=== PATIENT | male | born 1960 | race Caucasian/White ===

== ENCOUNTER 2018-10-30 12:53 | Inpatient (IN) ==
[2018-10-30] MEDS ORDERED: Hyoscyamine Liq Drops 0.125 MG/ML 15 ML Bottle SL ONE (15:19)
--- NOTE | 2018-10-30 15:31 | ED ---
HPI General Chief complaint: Nausea/Vomiting/Diarrhea Stated complaint: flu symptoms/n/v/d Time Seen by Provider: 10/30/18 15:03 Source: patient Mode of arrival: ambulatory Limitations: no limitations History of Present Illness HPI Narrative: Patient presents with complaints of nausea vomiting and diarrhea with general malaise since yesterday. Denies any blood per emesis or stool. Reports decreased fluid and food intake. [place] exposure to [place] people. Patient did take antibiotics as prescribed after biopsy. denies any camping. Denies any new foods. MD complaint: Reports nausea, vomiting and diarrhea Onset (ago): day(s) (Yesterday) Description of Vomiting: bilious Description of Diarrhea: watery Associated Abdominal Pain: No Location of pain: Reports diffuse Severity: mild Severity scale (1-10): 2 Quality: Reports dull Pain Consistency: constant Relieving factors: none Exacerbating factors: eating Context: Reports sick contacts, recent antibiotic use and recent surgery/ procedure Associated symptoms: Reports malaise Related Data Home Medications Medication Instructions Recorded Confirmed silodosin [Rapaflo] 4 mg PO DAILY 10/30/18 10/30/18 Allergies Allergy/AdvReac Type Severity Reaction Status Date / Time No Known Allergies Allergy Verified 10/30/18 12:58 Review of Systems ROS: all other systems reviewed are negative [facility] Medical History Medical History Enlarged prostate (Acute) Surgical History Surgical History History of cholecystectomy (Acute) History of hernia repair (Acute) History of prostate biopsy (Acute) Social History Social History Substance History: No History of Abuse Smoking Status: Never smoker How Often Do You Have a Drink Containing Alcohol: Never Recent Travel in [facility] within the Last 8 Weeks: Yes Recent Out of Country Travel within the Last 8 Weeks: No Immunization History Tetanus Immunization: Unsure Exam Narrative Exam Narrative: CARDIOVASCULAR: Regular rate and rhythm without murmurs, gallops , or rubs. RESPIRATORY: Breath sounds equal bilaterally. No accessory muscle use. GASTROINTESTINAL: Abdomen soft, normal bowel sounds, non-tender, nondistended. MUSCULOSKELETAL: No cyanosis, or edema. BACK: Nontender without obvious deformity. No CVA tenderness. Course Initial Documented Vital Signs Temperature 98.8 F 10/30/18 12:58 Pulse Rate 87 10/30/18 12:58 Respiratory Rate 18 10/30/18 12:58 Blood Pressure 93/60 L 10/30/18 12:58 Pulse Oximetry 98 10/30/18 12:58 Last Documented Vital Signs Temperature 98.8 F 10/30/18 12:58 Pulse Rate 91 H 10/30/18 18:09 Respiratory Rate 20 10/30/18 18:09 Blood Pressure 122/74 10/30/18 18:09 Pulse Oximetry 99 10/30/18 18:09 Medical Decision Making MDM Narrative Medical decision making narrative: Leukocytosis noted, acute renal failure noted , UTI noted, patient given IV antibiotics and hydration. Spoke with Dr. Bhatti who is in agreement will admit. Urosepsis versus septic prostatitis Medical Screen Exam Complete: Yes Emergency Medical Condition: Yes Differential Diagnosis Differential Diagnosis: Viral gastroenteritis, sepsis, abcess Medical Records Medical records reviewed: Yes I reviewed the patient's medical records. Lab Data Lab results reviewed: Yes I reviewed the patient's lab results. Result diagrams: 10/30/18 15:59 10/30/18 16:55 Lab Results 10/30/18 10/30/18 10/30/18 Range/Units 15:59 16:55 17:00 CBC w Diff Slide review pending WBC 32.6 H (4.0-11.0) th/mm3 RBC 5.15 (4.50-5.90) mil/mm3 Hgb 14.7 (13.0-17.0) gm/dL Hct 43.5 (39.0-51.0) % MCV 84.5 (80.0-100.0) fL MCH 28.6 (27.0-34.0) pg MCHC 33.9 (32.0-36.0) % RDW 12.6 (11.6-17.2) % Plt Count 130 L (150-450) th/mm3 MPV 8.1 (7.0-11.0) fL Neut % (Auto) 94.4 H (16.0-70.0) % Lymph % (Auto) 2.0 L (9.0-44.0) % [place] % (Auto) 2.1 (0.0-8.0) % Eos % (Auto) 0.1 (0.0-4.0) % Baso % (Auto) 1.4 (0.0-2.0) % Neut # (Auto) 30.7 H (1.8-7.7) th/mm3 Lymph # (Auto) 0.7 L (1.0-4.8) th/mm3 [place] # (Auto) 0.7 (0.0-0.9) th/mm3 Eos # (Auto) 0.0 (0.0-0.4) th/mm3 Baso # (Auto) 0.5 H (0.0-0.2) th/mm3 WBC Differential Manual diff final Seg Neuts % (Manual) 50 (16-70) % Band Neuts % (Manual) 31 H (0-6) % Lymphocytes % (Manual) 2 L (9-44) % Monocytes % (Manual) 3 (0-8) % Metamyelocytes % (Man) 12 H (0-1) % Myelocytes % (Man) 2 H (0-0) % Promyelocytes % (Man) Not Reportable Abs Neuts (Manual) 31.0 H (1.8-7.7) th/mm3 Differential Comment . Toxic Granulation 1+ H (None) Platelet Estimate Low L (Normal) Platelet Morphology Normal (Normal) Sodium 136 (136-145) meq/L Potassium 4.1 (3.5-5.1) meq/L Chloride 103 (98-107) meq/L Carbon Dioxide 22.2 (21.0-32.0) meq/L Anion Gap 11 (5-15) meq/L BUN 44 H (7-18) mg/dL Creatinine 3.00 H (0.60-1.30) mg/dL Estimated GFR 22 L (>89) mL/min Random Glucose 98 (74-106) mg/dL Lactic Acid 2.7 H (0.4-2.0) mmol/L Calcium 7.6 L (8.5-10.1) mg/dL Magnesium 1.5 (1.5-2.5) mg/dL Total Bilirubin 3.1 H (0.2-1.0) mg/dL AST 76 H (15-37) U/L ALT 93 H (12-78) U/L Alkaline Phosphatase 64 (45-117) U/L Total Protein 6.2 L (6.4-8.2) g/dL Albumin 2.9 L (3.4-5.0) g/dL Urine Color (Yellw/Straw) Urine Clarity (Clear) Urine pH (5.0-8.5) Ur Specific [place] (1.002-1.035) Urine Protein (Neg-Trace) mg/dL Urine Glucose (UA) (Negative) mg/dL Urine Ketones (Negative) mg/dL Urine Occult Blood (Negative) Urine Nitrate (Negative) Urine Bilirubin (Negative) Urine Ictotest (Negative) Urine Urobilinogen (Less than 2) mg/dL Ur Leukocyte Esterase (Negative) Urine RBC (0-3) /hpf Urine WBC (0-5) /hpf Urine WBC Clumps (None) Ur Squamous Epith Cells (0-5) /hpf Hyaline Casts (0-3) /lpf Granular Casts (None) /lpf Fine Granular Casts (None) /lpf Micro UA Comment Ur Microscopic Review Urine Culture Comments 10/30/18 Range/Units 17:13 CBC w Diff WBC (4.0-11.0) th/mm3 RBC (4.50-5.90) mil/mm3 Hgb (13.0-17.0) gm/dL Hct (39.0-51.0) % MCV (80.0-100.0) fL MCH (27.0-34.0) pg MCHC (32.0-36.0) % RDW (11.6-17.2) % Plt Count (150-450) th/mm3 MPV (7.0-11.0) fL Neut % (Auto) (16.0-70.0) % Lymph % (Auto) (9.0-44.0) % [place] % (Auto) (0.0-8.0) % Eos % (Auto) (0.0-4.0) % Baso % (Auto) (0.0-2.0) % Neut # (Auto) (1.8-7.7) th/mm3 Lymph # (Auto) (1.0-4.8) th/mm3 [place] # (Auto) (0.0-0.9) th/mm3 Eos # (Auto) (0.0-0.4) th/mm3 Baso # (Auto) (0.0-0.2) th/mm3 WBC Differential Seg Neuts % (Manual) (16-70) % Band Neuts % (Manual) (0-6) % Lymphocytes % (Manual) (9-44) % Monocytes % (Manual) (0-8) % Metamyelocytes % (Man) (0-1) % Myelocytes % (Man) (0-0) % Promyelocytes % (Man) Abs Neuts (Manual) (1.8-7.7) th/mm3 Differential Comment Toxic Granulation (None) Platelet Estimate (Normal) Platelet Morphology (Normal) Sodium (136-145) meq/L Potassium (3.5-5.1) meq/L Chloride (98-107) meq/L Carbon Dioxide (21.0-32.0) meq/L Anion Gap (5-15) meq/L BUN (7-18) mg/dL Creatinine (0.60-1.30) mg/dL Estimated GFR (>89) mL/min Random Glucose (74-106) mg/dL Lactic Acid (0.4-2.0) mmol/L Calcium (8.5-10.1) mg/dL Magnesium (1.5-2.5) mg/dL Total Bilirubin (0.2-1.0) mg/dL AST (15-37) U/L ALT (12-78) U/L Alkaline Phosphatase (45-117) U/L Total Protein (6.4-8.2) g/dL Albumin (3.4-5.0) g/dL Urine Color [place] H (Yellw/Straw) Urine Clarity Cloudy H (Clear) Urine pH 5.5 (5.0-8.5) Ur Specific [place] Greater/equal 1.030 (1.002-1.035) Urine Protein 30 H (Neg-Trace) mg/dL Urine Glucose (UA) Negative (Negative) mg/dL Urine Ketones Trace H (Negative) mg/dL Urine Occult Blood Large H (Negative) Urine Nitrate Positive H (Negative) Urine Bilirubin Small H (Negative) Urine Ictotest Positive H (Negative) Urine Urobilinogen 0.2 (Less than 2) mg/dL Ur Leukocyte Esterase Small H (Negative) Urine RBC 4-15 H (0-3) /hpf Urine WBC 9-20 H (0-5) /hpf Urine WBC Clumps Few H (None) Ur Squamous Epith Cells 0-5 (0-5) /hpf Hyaline Casts 0-3 (0-3) /lpf Granular Casts 1-3 H (None) /lpf Fine Granular Casts 1-3 H (None) /lpf Micro UA Comment Culture indicated Ur Microscopic Review Microscopic reviewed Urine Culture Comments Culture indicated Imaging Data Radiologist's impression: Chest X-Ray 10/30/18 16:27 CONCLUSION: No acute cardiopulmonary process Abdomen/Pelvis CT 10/30/18 16:32 CONCLUSION: 1. Mild induration of the soft tissues about the prostate without fluid collection or free air. 2. Prostate enlargement does indent into the base the urinary bladder. 3. Small right parasagittal supraumbilical ventral hernia with partial protrusion of the bowel into the defect. No dilated loops of small or large bowel. ECG Data Attestation: I personally reviewed and interpreted this ECG as follows: (EKG reveals sinus rhythm rate of 90, no ST segment elevations or depressions) Discharge Plan Discharge Disposition Patient Disposition: ED Admit(ED Internal Use Only) Discharge Condition Condition: Good Discharge Order Discharge Orders: ED Use Only Admit Order (Routine); Ordered 10/30/18 Ordered By: Justice Epperson Discharge Details Diagnosis: Sepsis Physicians Team ED Provider: Justice Epperson Primary Care Provider: Betty Elmore Rxs /Orders / Referrals /Forms Prescriptions: No Action silodosin [Rapaflo] 4 mg Capsule 4 mg PO DAILY RF: 0 Discharge Interventions Interventions: Vital Signs Last Done: 10/30/18 18:34 Status ED Status: With Doctor
[2018-10-30 16:09] LABS: Baso # (Auto) 0.5 th/mm3 (0.0-0.2); Baso % (Auto) 1.4 % (0.0-2.0); Eos % (Auto) 0.1 % (0.0-4.0); Hematocrit 43.5 % (39.0-51.0); Hemoglobin 14.7 gm/dL (13.0-17.0); Lymph # (Auto) 0.7 th/mm3 (1.0-4.8); Mean Corpuscular HGB Conc 33.9 % (32.0-36.0); Mean Corpuscular Hemoglobin 28.6 pg (27.0-34.0); Mean Corpuscular Volume 84.5 fL (80.0-100.0); Mean Platelet Volume 8.1 fL (7.0-11.0); Mono # (Auto) 0.7 th/mm3 (0.0-0.9); Mono % (Auto) 2.1 % (0.0-8.0); Neut # (Auto) 30.7 th/mm3 (1.8-7.7); Neut % (Auto) 94.4 % (16.0-70.0); Platelet Count 130 th/mm3 (150-450); Red Blood Count 5.15 mil/mm3 (4.50-5.90); Red Cell Distribution Width 12.6 % (11.6-17.2); White Blood Count 32.6 th/mm3 (4.0-11.0)
[2018-10-30] MEDS ORDERED: Sod Chloride 0.9% Inj 1,000 ML IV.SIG SCH (16:15)
[2018-10-30 16:46] LABS: Lymphocytes 2 % (9-44); Metamyelocytes 12 % (0-1); Monocytes 3 % (0-8)
[2018-10-30 16:47] LABS: Toxic Granulation 1+
[2018-10-30 16:48] LABS: Platelet Morphology Normal (Normal)
[2018-10-30 16:49] LABS: Myelocytes 2 % (0-0)
--- NOTE | 2018-10-30 16:55 | XR ---
EXAM DATE: 10/30/2018 4:36 PM EST AGE/SEX: 58 years / Male INDICATIONS: Fever, cough, cold, and flu symptoms. CLINICAL DATA: This is the patient's initial encounter. Patient reports that signs and symptoms have been present for 2 days and indicates a pain score of 2/10. MEDICAL/SURGICAL HISTORY: None. Cholecystectomy. COMPARISON: No prior exams available for comparison. FINDINGS: A single AP view of the chest demonstrates the lungs to be symmetrically aerated without evidence of mass, infiltrate or effusion. The cardiomediastinal contours are unremarkable. Osseous structures a re intact. CONCLUSION: No acute cardiopulmonary process Electronically signed by: Abraham Recinos MD Board Certified Radiologist 10/30/2018 4:54 PM EST
[2018-10-30 17:17] LABS: Chloride 103 meq/L (98-107); Potassium 4.1 meq/L (3.5-5.1); Sodium 136 meq/L (136-145)
[2018-10-30 17:20] LABS: Albumin 2.9 g/dL (3.4-5.0); Anion Gap 11 meq/L (5-15); Blood Urea Nitrogen 44 mg/dL (7-18); Calcium 7.6 mg/dL (8.5-10.1); Carbon Dioxide 22.2 meq/L (21.0-32.0); Glucose,Random 98 mg/dL (74-106); Magnesium 1.5 mg/dL (1.5-2.5)
[2018-10-30 17:23] LABS: Alanine Aminotransferase 93 U/L (12-78); Aspartate Aminotransferase 76 U/L (15-37); Glomerular Filtration Rate 22 mL/min (>89)
[2018-10-30 17:24] LABS: Bilirubin,Urine Small (Negative); Clarity,Urine Cloudy (Clear); Glucose,Urine (UA) Negative (Negative); Leukocyte Esterase,Urine Small (Negative); Nitrite,Urine Positive (Negative); PH,Urine 5.5 (5.0-8.5); Specific Gravity,Urine Greater/Equal 1.030 (1.002-1.035); Urobilinogen,Urine 0.2 mg/dL (Less than 2)
[2018-10-30 17:25] LABS: Total Protein 6.2 g/dL (6.4-8.2)
[2018-10-30 17:26] LABS: Alkaline Phosphatase 64 U/L (45-117)
[2018-10-30 17:30] LABS: Color,Urine Orange (Yellw/Straw); Ictotest,Urine Positive (Negative)
[2018-10-30 17:32] LABS: Hyaline Casts,Urine 0-3 /lpf (0-3); Squamous Epithelial Cell,Urine 0-5 /hpf (0-5)
--- NOTE | 2018-10-30 18:16 | CT ---
EXAM DATE: 10/30/2018 6:00 PM EST AGE/SEX: 58 years / Male INDICATIONS: Abdomen pain, Nausea, Vomiting, Diarrhea, prostate biopsy 2 days ago CLINICAL DATA: This is the patient's initial encounter. Patient reports that signs and symptoms have been present for 1 day and indicates a pain score of 2/10. MEDICAL/SURGICAL HISTORY: None. Cholecystectomy. Hernia Repair RADIATION DOSE: 23.29 CTDI (mGy) COMPARISON: No prior exams available for comparison. TECHNIQUE: Multiple contiguous axial images were obtained through the abdomen. Images were obtained using multiple row detector helical technique. Using automated exposure control and adjustment of the mA and/or kV according to patient size, radiation dose was kept as low as reasonably achievable to o btain optimal diagnostic quality images. DICOM format image data is available electronically for rev iew and comparison. FINDINGS: Lower Lungs: The visualized lower lungs are clear. Liver: The liver has a homogeneous density without space-occupying lesion. There is no dilation of th e biliary tree. Cholecystectomy. Spleen: Homogeneous density without enlargement. Pancreas: Unremarkable without mass or calcification. Kidneys: Normal in size and shape. No evidence of mass or hydronephrosis. Adrenal Glands: Unremarkable. Aorta: The aorta and proximal iliac vessels are grossly unremarkable without aneurysmal dilation. Bowel/Mesentery: No dilated loops of small or large bowel. No induration of the mesentery. A few sma ll sigmoid diverticula. Abdominal Wall: There is a small discontinuity of the right parasagittal mid abdominal wall approxim ately 2 cm above the umbilicus, best seen on axial image #51. There is a loop of bowel which partiall y protrudes into the defect. Retroperitoneum: No evidence of adenopathy in the retrocrural, para-aortic, or deep pelvic regions. Bladder: Contours are smooth. Reproductive Organs: Prostate is enlarged and does indent into the urinary bladder. Within the prost ate is measured at 7 cm. There is some induration of the soft tissues surrounding the prostate, consi stent with history of recent biopsy. There is no free fluid in the dependent pelvis. Inguinal: The inguinal region is unremarkable without evidence of adenopathy. Bony Structures: Unremarkable. CONCLUSION: 1. Mild induration of the soft tissues about the prostate without fluid collection or free air. 2. Prostate enlargement does indent into the base the urinary bladder. 3. Small right parasagittal supraumbilical ventral hernia with partial protrusion of the bowel into the defect. No dilated loops of small or large bowel. Electronically signed by: Iván Toledo MD Board Certified Radiologist 10/30/2018 6:15 PM EST
[2018-10-30] MEDS ORDERED: Bisacodyl 10 MG Supp RECTAL PRN (18:56)
[2018-10-30] MEDS: Senna/Docusate Sodium 8.6/50 MG Tablet PO SCH (20:46)
[2018-10-30] MEDS: Heparin - SQ 10,000 UNITS/ML Vial SQ SCH (20:46)
[2018-10-30] MEDS: Sod Chloride 0.9% Inj 1,000 ML IV.CONT SCH (20:46)
[2018-10-31 07:49] LABS: Baso # (Auto) 0.1 th/mm3 (0.0-0.2); Baso % (Auto) 0.7 % (0.0-2.0); Eos % (Auto) 0.1 % (0.0-4.0); Hematocrit 37.9 % (39.0-51.0); Lymph # (Auto) 0.9 th/mm3 (1.0-4.8); Lymph % (Auto) 4.8 % (9.0-44.0); Mean Corpuscular HGB Conc 34.3 % (32.0-36.0); Mean Corpuscular Volume 84.8 fL (80.0-100.0); Mean Platelet Volume 8.4 fL (7.0-11.0); Mono # (Auto) 0.6 th/mm3 (0.0-0.9); Mono % (Auto) 3.3 % (0.0-8.0); Neut # (Auto) 18.1 th/mm3 (1.8-7.7); Neut % (Auto) 91.1 % (16.0-70.0); Platelet Count 88 th/mm3 (150-450); Red Blood Count 4.46 mil/mm3 (4.50-5.90); Red Cell Distribution Width 12.8 % (11.6-17.2); White Blood Count 19.7 th/mm3 (4.0-11.0)
[2018-10-31 07:57] LABS: Potassium 3.5 meq/L (3.5-5.1)
[2018-10-31 07:59] LABS: Calcium 7.7 mg/dL (8.5-10.1)
[2018-10-31 08:00] LABS: Carbon Dioxide 20.5 meq/L (21.0-32.0)
[2018-10-31] MEDS: Senna/Docusate Sodium 8.6/50 MG Tablet PO SCH ×2 (08:47→21:57)
[2018-10-31] MEDS: Heparin - SQ 10,000 UNITS/ML Vial SQ SCH ×2 (08:49→21:57)
[2018-10-31 09:28] LABS: Lymphocytes 3 % (9-44); Metamyelocytes 8 % (0-1)
[2018-10-31 09:29] LABS: Dohle Bodies Present; Platelet Morphology Normal (Normal); Toxic Granulation 1+; Toxic Vacuolation Present
--- NOTE | 2018-10-31 11:18 | ECG ---
Date Performed: 10/30/2018 Time Performed: 16:36:31 PTAGE: 58 years EKG: Sinus rhythm MODERATE INTRAVENTRICULAR CONDUCTION DELAY NONSPECIFIC ST ELEVATION BORDERLINE ECG NO PREVIOUS TRACING DOCTOR: Marialuisa Cobian Interpretating Date/Time 10/31/2018 11:16:35
[2018-10-31] MEDS: Sod Chloride 0.9% Inj 1,000 ML IV.CONT SCH ×2 (14:34→17:16)
--- NOTE | 2018-10-31 15:42 | P.HP ---
History of Present Illness Primary Care Physician: Betty Elmore MD Chief Complaint: N/v/diarrhea History of Present Illness: This is a 58-year-old male patient with a known medical history of enlarged prostate who presented to the ED with complaints of nausea, vomiting, diarrhea and generalized malaise times 1 day. Patient is being followed by a urologist [place] and is in the middle of a study with [facility] and on of this week he underwent a prostate biopsy. On he actually traveled home after the biopsy to [place] and was doing quite well. On Thursday he developed severe chills and fever with associated nausea, vomiting and diarrhea. He had felt that this was maybe the flu or something he caught while traveling. Patient states that the symptoms continued to worsen over the course of the evening which prompted his presentation to the ED on Thursday morning. Patient denies any previous UTI in the past. He does state he took three doses of Levaquin the day before, of and day after his procedure. Presented with severe sepsis with bacteremia, leukocytosis with WBC 30k, elevated lactic acid and UA and + blood cultures with gram neg rods. - Diagnosis (1) Sepsis Inpatient Certification: I certify that the inpatient services were ordered in accordance with Medicare regulations governing the order. This includes certification that hospital inpatient services are reasonable and necessary and in the case of services not specified as inpatient-only under 42 CFR 419.22(n), that they are appropriately provided as inpatient services in accordance to with the 2-midnight benchmark under 43 CFR 412.3(e) Estimated Total Length of Stay (Days): 5 Plans for Post Hospital Care: Home Review of Systems All other systems reviewed negative except as stated in [facility] - History History Provided By: Patient, Significant Other - Medical History Medical History: Medical History (Last Reviewed 10/31/18 @ 15:33 by Rachelle Liang) Enlarged prostate - Surgical History Surgical History: Surgical History (Last Reviewed 10/31/18 @ 15:33 by Rachelle Liang) History of cholecystectomy History of hernia repair History of prostate biopsy - Family History Family History: Family History (Last Updated 10/31/18 @ 16:14 by Rachelle Liang) Other Family history in first degree relatives is unremarkable - Social History I have reviewed the patient's Social History: Yes - Tobacco History Second Hand Smoke Exposure: No Smoking Status: Never smoker - Alcohol History How Often Do You Have a Drink Containing Alcohol: Never - Substance Use History Substance History: No History of Abuse - Travel History Recent Travel in the [place] Within the Last 8 Weeks: Yes Recent Travel Out of the Country Within the Last 8 Weeks: No - Immunization History Tetanus Immunization: Unsure Hx Influenza Vaccine This Season: No Medications and Allergies Active Medications: Active Medications Acetaminophen (Tylenol) 650 mg PO Q4H PRN PRN Reason: Temp > 100.4 Al Hydroxide/Mg Hydroxide (Milk Of Magnesia Liq) 30 ml PO Q12H PRN PRN Reason: Mild Constipation Bisacodyl (Dulcolax Supp) 10 mg RECTAL DAILY PRN PRN Reason: SEVERE CONSITIPATION Heparin Sodium (Porcine) (Heparin Inj) 5,000 units SQ Q12H [facility] Last Admin: 10/31/18 08:49 Dose: 5,000 units Ceftriaxone Sodium 1,000 mg/ (Sodium Chloride) 100 mls @ 200 mls/hr IV.SIG Q24H [facility] Sodium Chloride (Ns Inj) 1,000 mls @ 100 mls/hr IV.CONT .Q10H [facility] Last Admin: 10/31/18 14:34 Dose: 100 mls/hr Lactulose (Lactulose Liq) 30 ml PO DAILY PRN PRN Reason: SEVERE CONSITIPATION Ondansetron HCl (Zofran Inj) 4 mg IV.PUSH Q6H PRN PRN Reason: NAUSEA OR VOMITING Last Admin: 10/31/18 08:49 Dose: 4 mg Senna/Docusate Sodium (Hailee-Colace) 1 tab PO BID [facility] Last Admin: 10/31/18 08:47 Dose: 1 tab Sennosides (Senokot) 17.2 mg PO Q12H PRN PRN Reason: Moderate Constipation Sodium Chloride (Ns Flush) 2 ml IV.FLUSH BID [facility] Last Admin: 10/31/18 08:48 Dose: Not Given Sodium Chloride (Ns Flush) 2 ml IV.FLUSH PRN PRN PRN Reason: FLUSH AFTER USING IV ACCESS Tamsulosin HCl (Flomax) 0.4 mg PO DAILY [facility] Last Admin: 10/31/18 08:47 Dose: 0.4 mg Allergies Allergy/AdvReac Type Severity Reaction Status Date / Time No Known Allergies Allergy Verified 10/30/18 12:58 Home Medications Medication Instructions Recorded Confirmed Type silodosin [Rapaflo] 8 mg PO HS 10/30/18 10/31/18 History Exam Vital signs: Vital Signs 10/30/18 16:20 10/30/18 16:27 10/30/18 16:40 Temperature Pulse Rate 86 82 Respiratory Rate 20 Blood Pressure 93/66 L 107/68 Pulse Oximetry 99 99 10/30/18 17:09 10/30/18 18:09 10/30/18 18:34 Temperature Pulse Rate 91 H 83 Respiratory Rate 20 20 20 Blood Pressure 100/67 122/74 137/69 Pulse Oximetry 99 99 99 10/30/18 19:34 10/30/18 20:00 10/31/18 00:00 Temperature 98.7 F 98.0 F Pulse Rate 95 H 90 90 Respiratory Rate 20 16 18 Blood Pressure 112/70 113/78 112/79 Pulse Oximetry 97 99 100 10/31/18 04:00 10/31/18 08:00 10/31/18 12:00 Temperature 98.9 F 99.3 F 97.8 F Pulse Rate 96 H 99 H 97 H Respiratory Rate 16 15 16 Blood Pressure 125/68 112/63 118/71 Pulse Oximetry 99 96 96 Intake & Output 10/30/18 10/31/18 10/31/18 18:59 06:59 18:59 Intake Total 1000 / 1000 1060 / 1060 1000 / 1000 Balance 1000 / 1000 1060 / 1060 1000 / 1000 Weight 107 kg 108.9 kg Intake: IV 1000 / 1000 100 / 100 1000 / 1000 NS Inj 1,000 ML @ 100 mls/hr IV 1000 / 1000 .CONT .Q10H [facility] Rx#:[id number] NS Inj 1,000 ML @ 1000 mls/hr 1000 / 1000 IV.SIG BOLUS [facility]EL Rx#:[id number] Rocephin Inj 1,000 MG In NS Inj 100 / 100 100 ML @ 200 mls/hr IV.SIG ONCE ONE Rx#:[id number] Oral 960 / 960 Other: # Voids 10 Narrative: GENERAL: Well-developed, well-nourished patient in NAD. SKIN: Cool and clammy. No rash. HEAD: Normocephalic. Atraumatic. EYES: Pupils equal and round. No scleral icterus. No injection or drainage. ENT: No nasal bleeding or discharge. Mucous membranes pink and moist. NECK: Supple. Trachea midline. CARDIOVASCULAR: Regular rate and rhythm. S1, S2 noted. No murmur appreciated. RESPIRATORY: No accessory muscle use. Clear to auscultation. Breath sounds equal bilaterally. GASTROINTESTINAL: Abdomen soft, non-tender, nondistended. Hypoactive bowel sounds x4. No pain to palpation. MUSCULOSKELETAL: No obvious deformities. Extremities without clubbing, cyanosis , or edema. NEUROLOGICAL: Awake and alert. No obvious cranial nerve deficits. Motor grossly within normal limits. 5/5 muscle strength in bilateral upper and lower extremities. Normal speech. PSYCHIATRIC: Appropriate mood and affect; insight and judgment normal. Results - Labs CBC & Chem 7: 10/31/18 07:18 10/31/18 07:18 Labs: Laboratory Results - last 24 hr 10/30/18 10/30/18 10/30/18 15:59 16:55 17:00 CBC w Diff Slide review pending WBC 32.6 H RBC 5.15 Hgb 14.7 Hct 43.5 MCV 84.5 MCH 28.6 MCHC 33.9 RDW 12.6 Plt Count 130 L MPV 8.1 Neut % (Auto) 94.4 H Lymph % (Auto) 2.0 L [place] % (Auto) 2.1 Eos % (Auto) 0.1 Baso % (Auto) 1.4 Neut # (Auto) 30.7 H Lymph # (Auto) 0.7 L [place] # (Auto) 0.7 Eos # (Auto) 0.0 Baso # (Auto) 0.5 H WBC Differential Manual diff final Seg Neuts % (Manual) 50 Band Neuts % (Manual) 31 H Lymphocytes % (Manual) 2 L Monocytes % (Manual) 3 Metamyelocytes % (Man) 12 H Myelocytes % (Man) 2 H Promyelocytes % (Man) Not Reportable Abs Neuts (Manual) 31.0 H Differential Comment . Toxic Granulation 1+ H Toxic Vacuolation Dohle Bodies Platelet Estimate Low L Platelet Morphology Normal Sodium 136 Potassium 4.1 Chloride 103 Carbon Dioxide 22.2 Anion Gap 11 BUN 44 H Creatinine 3.00 H Estimated GFR 22 L Random Glucose 98 Lactic Acid 2.7 H Calcium 7.6 L Magnesium 1.5 Total Bilirubin 3.1 H AST 76 H ALT 93 H Alkaline Phosphatase 64 Total Protein 6.2 L Albumin 2.9 L Urine Color Urine Clarity Urine pH Ur Specific [place] Urine Protein Urine Glucose (UA) Urine Ketones Urine Occult Blood Urine Nitrate Urine Bilirubin Urine Ictotest Urine Urobilinogen Ur Leukocyte Esterase Urine RBC Urine WBC Urine WBC Clumps Ur Squamous Epith Cells Hyaline Casts Granular Casts Fine Granular Casts Micro UA Comment Ur Microscopic Review Urine Culture Comments 10/30/18 10/30/18 10/31/18 17:13 19:19 07:18 CBC w Diff Slide review pending WBC 19.7 H RBC 4.46 L Hgb 13.0 Hct 37.9 L MCV 84.8 MCH 29.0 MCHC 34.3 RDW 12.8 Plt Count 88 L D MPV 8.4 Neut % (Auto) 91.1 H Lymph % (Auto) 4.8 L [place] % (Auto) 3.3 Eos % (Auto) 0.1 Baso % (Auto) 0.7 Neut # (Auto) 18.1 H Lymph # (Auto) 0.9 L [place] # (Auto) 0.6 Eos # (Auto) 0.0 Baso # (Auto) 0.1 WBC Differential Manual diff final Seg Neuts % (Manual) 65 Band Neuts % (Manual) 24 H Lymphocytes % (Manual) 3 L Monocytes % (Manual) Metamyelocytes % (Man) 8 H Myelocytes % (Man) Promyelocytes % (Man) Abs Neuts (Manual) 19.1 H Differential Comment . Toxic Granulation 1+ H Toxic Vacuolation Present H Dohle Bodies Present H Platelet Estimate Low L Platelet Morphology Normal Sodium Potassium Chloride Carbon Dioxide Anion Gap BUN Creatinine Estimated GFR Random Glucose Lactic Acid 2.4 H Calcium Magnesium Total Bilirubin AST ALT Alkaline Phosphatase Total Protein Albumin Urine Color [place] H Urine Clarity Cloudy H Urine pH 5.5 Ur Specific [place] Greater/equal 1.030 Urine Protein 30 H Urine Glucose (UA) Negative Urine Ketones Trace H Urine Occult Blood Large H Urine Nitrate Positive H Urine Bilirubin Small H Urine Ictotest Positive H Urine Urobilinogen 0.2 Ur Leukocyte Esterase Small H Urine RBC 4-15 H Urine WBC 9-20 H Urine WBC Clumps Few H Ur Squamous Epith Cells 0-5 Hyaline Casts 0-3 Granular Casts 1-3 H Fine Granular Casts 1-3 H Micro UA Comment Culture indicated Ur Microscopic Review Microscopic reviewed Urine Culture Comments Culture indicated 10/31/18 07:18 CBC w Diff WBC RBC Hgb Hct MCV MCH MCHC RDW Plt Count MPV Neut % (Auto) Lymph % (Auto) [place] % (Auto) Eos % (Auto) Baso % (Auto) Neut # (Auto) Lymph # (Auto) [place] # (Auto) Eos # (Auto) Baso # (Auto) WBC Differential Seg Neuts % (Manual) Band Neuts % (Manual) Lymphocytes % (Manual) Monocytes % (Manual) Metamyelocytes % (Man) Myelocytes % (Man) Promyelocytes % (Man) Abs Neuts (Manual) Differential Comment Toxic Granulation Toxic Vacuolation Dohle Bodies Platelet Estimate Platelet Morphology Sodium 136 Potassium 3.5 Chloride 104 Carbon Dioxide 20.5 L Anion Gap 12 BUN 41 H Creatinine 1.80 H Estimated GFR 39 L Random Glucose 100 Lactic Acid Calcium 7.7 L Magnesium Total Bilirubin AST ALT Alkaline Phosphatase Total Protein Albumin Urine Color Urine Clarity Urine pH Ur Specific [place] Urine Protein Urine Glucose (UA) Urine Ketones Urine Occult Blood Urine Nitrate Urine Bilirubin Urine Ictotest Urine Urobilinogen Ur Leukocyte Esterase Urine RBC Urine WBC Urine WBC Clumps Ur Squamous Epith Cells Hyaline Casts Granular Casts Fine Granular Casts Micro UA Comment Ur Microscopic Review Urine Culture Comments - Imaging Impressions Chest X-Ray 10/30/18 16:27 CONCLUSION: No acute cardiopulmonary process Abdomen/Pelvis CT 10/30/18 16:32 CONCLUSION: 1. Mild induration of the soft tissues about the prostate without fluid collection or free air. 2. Prostate enlargement does indent into the base the urinary bladder. 3. Small right parasagittal supraumbilical ventral hernia with partial protrusion of the bowel into the defect. No dilated loops of small or large bowel. Caprini VTE Risk Assessment Caprini VTE Risk Assessment: No/Low Risk (score <= 1) Caprini Risk Assessment Model: Point Value = 1 Point Value = 2 Point Value = 3 Point Value = 5 Age 41-60 Minor surgery BMI > 25 kg/m2 Swollen legs Varicose veins or History of unexplained or recurrent spontaneous Oral contraceptives or hormone replacement Sepsis (< 1 month) Serious lung disease, including pneumonia (< 1 month) Abnormal pulmonary function Acute myocardial infarction Congestive heart failure (< 1 month) History of inflammatory bowel disease Medical patient at bed rest Age 61-74 Arthroscopic surgery Major open surgery (> 45 min) Laparoscopic surgery (> 45 min) Malignancy Confined to bed (> 72 hours) Immobilizing plaster cast Central venous access Age >= 75 History of VTE Family history of VTE Factor V Leiden Prothrombin [id number] Lupus anticoagulant Anticardiolipin antibodies Elevated serum homocysteine Heparin-induced thrombocytopenia Other congenital or acquired thrombophilia Stroke (< 1 month) Elective arthroplasty Hip, pelvis, or leg fracture Acute spinal cord injury (< 1 month) Prophylaxis Regimen: Total Risk Factor Score Risk Level Prophylaxis Regimen 0-1 Low Early ambulation 2 Moderate Order ONE of the following: *Sequential Compression Device (SCD) *Heparin 5000 units SQ BID 3-4 Higher Order ONE of the following medications: *Heparin 5000 units SQ TID *Enoxaparin/Lovenox 40 mg SQ daily (WT < 150 kg, CrCl > 30 mL/min) *Enoxaparin/Lovenox 30 mg SQ daily (WT < 150 kg, CrCl > 10-29 mL/min) *Enoxaparin/Lovenox 30 mg SQ BID (WT < 150 kg, CrCl > 30 mL/min) AND/OR *Sequential Compression Device (SCD) 5 or more Highest Order ONE of the following medications: *Heparin 5000 units SQ TID (Preferred with Epidurals) *Enoxaparin/Lovenox 40 mg SQ daily (WT < 150 kg, CrCl > 30 mL/min) *Enoxaparin/Lovenox 30 mg SQ daily (WT < 150 kg, CrCl > 10-29 mL/min) *Enoxaparin/Lovenox 30 mg SQ BID (WT < 150 kg, CrCl > 30 mL/min) AND *Sequential Compression Device (SCD) Assessment and Plan - Assessment (1) Sepsis Code(s): A41.9 - Sepsis, unspecified organism Status: Acute - Plan This is a 58-year-old male patient with a known medical history of enlarged prostate who presented to the ED with complaints of nausea, vomiting, diarrhea and generalized malaise x 1 day. Severe urosepsis Bacteremia Acute kidney injury suspect secondary to above. improving History of enlarged prostate Recent outpatient prostate biopsy -Patient presents with severe leukocytosis of white blood cell 30k, elevated lactic acid, tachycardia and source urinary tract. -UA showing nitrates, leukocyte esterase and white blood cells. Urine culture gram-negative rods. -Creatinine 3.0/GFR 22 upon presentation, today 1.8/39. Will continue to monitor CBC and CMP in a.m. -Blood cultures x2 bottles positive for gram-negative rods. Repeat blood cultures ordered. -Abdominal/pelvis CT reviewed showing enlarged prostate as well as mild induration of the soft tissues about the prostate. -Chest x-ray reviewed, essentially unremarkable with no acute cardiopulmonary disease noted. -Started on ceftriaxone IV for now. Will continue. ID consulted and input and recommendations pending. -CBC this morning showing white blood cells decreased from 30,000 to 19.7. Afebrile overnight. -Will continue IV fluids. Ensure hydration. Was given 1 L NS bolus in ED. -Continue Flomax. -Patient is requesting referral to urology once discharged. At this time will hold off on consultation for now. He is urinating well. Upon discharge we will refer. -Supportive care. Transaminitis Elevated bilirubin -Total bilirubin 3.1. -Unknown etiology. -Will check labs in a.m. follow. DVT prophylaxis: SCDs. Heparin. (1) Sepsis Qualifiers: Sepsis type: sepsis due to unspecified organism Qualified Code(s): A41.9 - Sepsis, unspecified organism
[2018-10-31 16:13] LABS: Albumin 2.8 g/dL (3.4-5.0)
[2018-10-31 16:18] LABS: Total Protein 6.2 g/dL (6.4-8.2)
[2018-11-01] MEDS: Sod Chloride 0.9% Inj 1,000 ML IV.CONT SCH ×3 (02:41→20:53)
[2018-11-01 07:32] LABS: Baso % (Auto) 0.3 % (0.0-2.0); Eos # (Auto) 0.1 th/mm3 (0.0-0.4); Eos % (Auto) 0.6 % (0.0-4.0); Hemoglobin 12.1 gm/dL (13.0-17.0); Lymph % (Auto) 7.1 % (9.0-44.0); Mean Corpuscular HGB Conc 33.6 % (32.0-36.0); Mean Corpuscular Hemoglobin 28.4 pg (27.0-34.0); Mean Corpuscular Volume 84.5 fL (80.0-100.0); Mean Platelet Volume 8.9 fL (7.0-11.0); Mono # (Auto) 0.5 th/mm3 (0.0-0.9); Mono % (Auto) 3.3 % (0.0-8.0); Neut # (Auto) 12.1 th/mm3 (1.8-7.7); Neut % (Auto) 88.7 % (16.0-70.0); Platelet Count 99 th/mm3 (150-450); Red Blood Count 4.26 mil/mm3 (4.50-5.90); Red Cell Distribution Width 12.6 % (11.6-17.2); White Blood Count 13.7 th/mm3 (4.0-11.0)
[2018-11-01 07:35] LABS: Chloride 108 meq/L (98-107); Potassium 3.4 meq/L (3.5-5.1); Sodium 141 meq/L (136-145)
[2018-11-01 07:41] LABS: Albumin 2.7 g/dL (3.4-5.0); Anion Gap 9 meq/L (5-15); Calcium 7.6 mg/dL (8.5-10.1); Carbon Dioxide 23.8 meq/L (21.0-32.0); Glucose,Random 97 mg/dL (74-106)
[2018-11-01 07:54] LABS: Alanine Aminotransferase 55 U/L (12-78); Alkaline Phosphatase 99 U/L (45-117); Aspartate Aminotransferase 36 U/L (15-37); Glomerular Filtration Rate 77 mL/min (>89); Platelet Morphology Normal (Normal); RBC Morphology Normal (Normal); Total Protein 6.2 g/dL (6.4-8.2)
[2018-11-01 07:56] LABS: Blood Urea Nitrogen 26 mg/dL (7-18)
--- NOTE | 2018-11-01 07:58 | P.PNIM ---
Subjective Interval history: Follow up urosepsis bacteremia. Patient seen and examined, at bedside. Sitting on side of bed comfortably in nad. Eating lunch. He states he feels much improved. Afebrile overnight. Awaiting ID recommendations. Labs improved today. Urinating well without any dysuria. Complaints of frequency and urgency. Denies any shortness of breath or chest pain. Physical Exam Vital signs: Vital Signs 10/31/18 08:00 10/31/18 12:00 10/31/18 16:00 Temperature 99.3 F 97.8 F 97.6 F Pulse Rate 111 H 97 H 92 H Respiratory Rate 15 16 16 Blood Pressure 112/63 118/71 122/76 Pulse Oximetry 96 96 96 10/31/18 18:00 10/31/18 20:00 11/01/18 00:00 Temperature 98.6 F 98.8 F Pulse Rate 92 H 97 H 97 H Respiratory Rate 18 18 Blood Pressure 118/74 109/75 Pulse Oximetry 98 98 11/01/18 04:00 Temperature 98.1 F Pulse Rate 90 Respiratory Rate 18 Blood Pressure 117/71 Pulse Oximetry 96 Intake & Output 10/31/18 11/01/18 11/01/18 18:59 06:59 18:59 Intake Total 3730 / 3730 1960 / 1960 Output Total 1500 / 1500 Balance 3730 / 3730 460 / 460 Weight 109.2 kg Intake: IV 2100 / 2100 1000 / 1000 NS Inj 1,000 ML @ 100 mls/hr IV 2000 / 2000 1000 / 1000 .CONT .Q10H [facility] Rx#:[id number] Rocephin Inj 1,000 MG In NS Inj 100 / 100 100 ML @ 200 mls/hr IV.SIG Q24H [facility] Rx#:[id number] Oral 1630 / 1630 Oral Supplement 960 / 960 Output: Urine 1500 / 1500 Other: # Voids 5 # Bowel Movements 0 - Constitutional no acute distress - Routine HEENT Exam Head: Present: normocephalic - Routine Neck Exam Present: supple - Routine Cardiovascular Exam Present: RRR - Routine Abdominal Exam Present: soft - Routine Exam Perineum Description: Intact - Routine Skin Exam Present: intact - Routine Neurological Exam Present: alert, oriented X3 - Routine Psychiatric Exam Present: normal affect Results - Labs CBC & Chem 7: 11/01/18 06:02 11/01/18 06:02 Laboratory Results - last 24 hr 10/30/18 10/31/18 10/31/18 17:13 07:18 07:18 CBC w Diff WBC RBC Hgb Hct MCV MCH MCHC RDW Plt Count MPV Neut % (Auto) Lymph % (Auto) [place] % (Auto) Eos % (Auto) Baso % (Auto) Neut # (Auto) Lymph # (Auto) [place] # (Auto) Eos # (Auto) Baso # (Auto) WBC Differential Manual diff final Diff Scan Seg Neuts % (Manual) 65 Band Neuts % (Manual) 24 H Lymphocytes % (Manual) 3 L Metamyelocytes % (Man) 8 H Abs Neuts (Manual) 19.1 H Differential Comment Toxic Granulation 1+ H Toxic Vacuolation Present H Dohle Bodies Present H Platelet Estimate Low L Platelet Morphology Normal RBC Morphology Sodium Potassium Chloride Carbon Dioxide 20.5 L Anion Gap 12 BUN 41 H Creatinine 1.80 H Estimated GFR 39 L Random Glucose 100 Calcium 7.7 L Total Bilirubin Direct Bilirubin Indirect Bilirubin AST ALT Alkaline Phosphatase Total Protein Albumin Urine Color [place] H Urine Clarity Cloudy H Urine pH 5.5 Ur Specific [place] Greater/equal 1.030 Urine Protein 30 H Urine Glucose (UA) Negative Urine Ketones Trace H Urine Occult Blood Large H Urine Nitrate Positive H Urine Bilirubin Small H Urine Ictotest Positive H Urine Urobilinogen 0.2 Ur Leukocyte Esterase Small H Urine RBC 4-15 H Urine WBC 9-20 H Urine WBC Clumps Few H Ur Squamous Epith Cells 0-5 Hyaline Casts 0-3 Granular Casts 1-3 H Fine Granular Casts 1-3 H Micro UA Comment Culture indicated Ur Microscopic Review Microscopic reviewed Urine Culture Comments Culture indicated 10/31/18 11/01/18 11/01/18 07:18 06:02 06:02 CBC w Diff Slide review pending WBC 13.7 H RBC 4.26 L Hgb 12.1 L Hct 36.0 L MCV 84.5 MCH 28.4 MCHC 33.6 RDW 12.6 Plt Count 99 L MPV 8.9 Neut % (Auto) 88.7 H Lymph % (Auto) 7.1 L [place] % (Auto) 3.3 Eos % (Auto) 0.6 Baso % (Auto) 0.3 Neut # (Auto) 12.1 H Lymph # (Auto) 1.0 [place] # (Auto) 0.5 Eos # (Auto) 0.1 Baso # (Auto) 0.0 WBC Differential . Diff Scan Auto diff confirmed Seg Neuts % (Manual) Band Neuts % (Manual) Lymphocytes % (Manual) Metamyelocytes % (Man) Abs Neuts (Manual) Differential Comment . Toxic Granulation Toxic Vacuolation Dohle Bodies Platelet Estimate Platelet Morphology Normal RBC Morphology Normal Sodium 141 Potassium 3.4 L Chloride 108 H Carbon Dioxide 23.8 Anion Gap 9 BUN 26 H Creatinine 1.00 Estimated GFR 77 L Random Glucose 97 Calcium 7.6 L Total Bilirubin 1.9 H 1.2 H Direct Bilirubin 0.9 H Indirect Bilirubin 1.0 H AST 58 H 36 ALT 75 55 Alkaline Phosphatase 73 99 Total Protein 6.2 L 6.2 L Albumin 2.8 L 2.7 L Urine Color Urine Clarity Urine pH Ur Specific [place] Urine Protein Urine Glucose (UA) Urine Ketones Urine Occult Blood Urine Nitrate Urine Bilirubin Urine Ictotest Urine Urobilinogen Ur Leukocyte Esterase Urine RBC Urine WBC Urine WBC Clumps Ur Squamous Epith Cells Hyaline Casts Granular Casts Fine Granular Casts Micro UA Comment Ur Microscopic Review Urine Culture Comments Microbiology 10/30/18 16:55 Blood - Peripheral Aerobic Blood Culture - Preliminary No growth in 1 day 10/30/18 16:55 Blood - Peripheral Anaerobic Blood Culture - Preliminary gram negative rods 10/30/18 16:50 Blood - Peripheral Aerobic Blood Culture - Preliminary No growth in 1 day 10/30/18 16:50 Blood - Peripheral Anaerobic Blood Culture - Preliminary gram negative rods 10/30/18 17:13 Clean Catch Urine Urine Culture - Preliminary gram negative rods Assessment and Plan - Assessment (1) Sepsis Code(s): A41.9 - Sepsis, unspecified organism Status: Acute - Plan This is a 58-year-old male patient with a known medical history of enlarged prostate who presented to the ED with complaints of nausea, vomiting, diarrhea and generalized malaise x 1 day. Severe urosepsis Bacteremia Acute kidney injury suspect secondary to above. Resolved. History of enlarged prostate Recent outpatient prostate biopsy -Patient presents with severe leukocytosis of white blood cell 30k, elevated lactic acid, tachycardia and source urinary tract. -UA showing nitrates, leukocyte esterase and white blood cells. Urine culture Ecoli. Pending ROBERTA. -Creatinine 3.0/GFR 22 upon presentation, today 1.0/77. Will continue to monitor CBC and CMP in a.m. -Blood cultures x2 bottles positive for gram-negative rods. Repeat blood cultures ordered and negative x 1 day. Check ECHO. -Abdominal/pelvis CT reviewed showing enlarged prostate as well as mild induration of the soft tissues about the prostate. -Chest x-ray reviewed, essentially unremarkable with no acute cardiopulmonary disease noted. -Started on ceftriaxone IV for now. Added Cipro. Will continue. ID consulted and input and recommendations pending. -CBC this morning showing white blood cells decreased from 30,000 to 12k. Afebrile overnight. -Will continue IV fluids. Ensure hydration. Was given 1 L NS bolus in ED. -Continue Flomax. -Patient is requesting referral to urology once discharged. At this time will hold off on consultation for now. He is urinating well. Upon discharge we will refer. -Supportive care. Transaminitis. Improved. Elevated bilirubin. Improved. -Total bilirubin 3.1 on presentation. -Unknown etiology. -Continue to monitor labs. DVT prophylaxis: SCDs. Heparin. Discharge Planning: Awaiting ID recs and cultures. (1) Sepsis Qualifiers: Sepsis type: sepsis due to unspecified organism Qualified Code(s): A41.9 - Sepsis, unspecified organism
[2018-11-01] MEDS: Senna/Docusate Sodium 8.6/50 MG Tablet PO SCH ×2 (08:34→20:52)
[2018-11-01] MEDS: Heparin - SQ 10,000 UNITS/ML Vial SQ SCH ×2 (08:34→20:52)
[2018-11-01] MEDS ORDERED: Ciprofloxacin 400 MG/200 ML 400 MG/200 ML PIGGYBACK IV.SIG SCH (11:00)
--- NOTE | 2018-11-01 15:24 | P.CONID ---
History of Present Illness Service: Infectious Disease Consult date: 11/01/18 Requesting Physician: Rachelle Liang Reason for Consult: Bacteremia Primary Care Provider: Betty Elmore MD Chief Complaint: N/v/diarrhea History of Present Illness: 58/M with known BPH - had a prostate biopsy done last - was give Levofloxacin hailee operatively - did not feel well the next day with flu like symptoms and then severe shaking chills and so he came to the hospital. Blood cultures 2/ 4 with GNR and Urine culture growing E coli. Feels better today though no appetite, headaches and still some dysuria and frequency. Review of Systems Constitutional: Reports anorexia, Reports body ache(s), Reports chills, Reports fatigue, Reports headache(s), Reports malaise, Denies fever(s) Eyes: Denies blurry vision, Denies bulging eyes Ears, Nose, Mouth, and Throat: Denies abnormal hearing, Denies bleeding gums, Denies bad breath, Denies hearing loss Cardiovascular: Denies chest pain, Denies chest pain at rest, Denies leg pain with activity Respiratory: Denies change in phlegm color, Denies chest congestion, Denies excessive phlegm production, Denies pain on inspiration Gastrointestinal: Reports loose stools, Denies abdominal pain, Denies black, tarry stools, Denies coffee ground vomit Genitourinary: Reports painful urination, Reports urinary frequency, Reports urinary incontinence, Reports urinary urgency, Denies blood in semen, Denies blood in urine Musculoskeletal: Denies abnormal walking, Denies back pain, Denies body aches Skin/Breast: Denies acne, Denies bleeding lesions, Denies boil Neurologic: Denies abnormal hearing, Denies abnormal movements, Denies lack of coordination, Denies numbness, Denies restless legs Psychiatric: Denies abnormal sleep pattern, Denies anxiety, Denies behavioral changes, Denies depression Endocrine: Reports excessive sweating, Denies cold intolerance Hematologic/Lymphatic: Denies easy bleeding, Denies easy bruising PMFSH - History History Provided By: Patient, Significant Other - Medical History Medical History: Medical History (Last Reviewed 10/31/18 @ 15:33 by Rachelle Liang) Enlarged prostate - Surgical History Surgical History: Surgical History (Last Reviewed 10/31/18 @ 15:33 by Rachelle Liang) History of cholecystectomy History of hernia repair History of prostate biopsy - Family History Family History: Family History (Last Updated 10/31/18 @ 16:14 by Rachelle Liang) Other Family history in first degree relatives is unremarkable - Tobacco History Second Hand Smoke Exposure: No Smoking Status: Never smoker - Alcohol History How Often Do You Have a Drink Containing Alcohol: Never - Substance Use History Substance History: No History of Abuse - Travel History Recent Travel in the [place] Within the Last 8 Weeks: Yes Recent Travel Out of the Country Within the Last 8 Weeks: No - Immunization History Tetanus Immunization: Unsure Hx Influenza Vaccine This Season: No Medications and Allergies Active Medications: Active Medications Acetaminophen (Tylenol) 650 mg PO Q4H PRN PRN Reason: Temp > 100.4 Al Hydroxide/Mg Hydroxide (Milk Of Magnesia Liq) 30 ml PO Q12H PRN PRN Reason: Mild Constipation Bisacodyl (Dulcolax Supp) 10 mg RECTAL DAILY PRN PRN Reason: SEVERE CONSITIPATION Heparin Sodium (Porcine) (Heparin Inj) 5,000 units SQ Q12H [facility] Last Admin: 11/01/18 08:34 Dose: 5,000 units Sodium Chloride (Ns Inj) 1,000 mls @ 100 mls/hr IV.CONT .Q10H [facility] Last Admin: 11/01/18 11:37 Dose: 100 mls/hr Lactulose (Lactulose Liq) 30 ml PO DAILY PRN PRN Reason: SEVERE CONSITIPATION Promethazine HCl (Phenergan) 25 mg PO Q6H PRN PRN Reason: NAUSEA OR VOMITING Senna/Docusate Sodium (Hailee-Colace) 1 tab PO BID [facility] Last Admin: 11/01/18 08:34 Dose: 1 tab Sennosides (Senokot) 17.2 mg PO Q12H PRN PRN Reason: Moderate Constipation Sodium Chloride (Ns Flush) 2 ml IV.FLUSH BID [facility] Last Admin: 11/01/18 08:35 Dose: 2 ml Sodium Chloride (Ns Flush) 2 ml IV.FLUSH PRN PRN PRN Reason: FLUSH AFTER USING IV ACCESS Tamsulosin HCl (Flomax) 0.4 mg PO DAILY [facility] Last Admin: 11/01/18 08:34 Dose: 0.4 mg Allergies Allergy/AdvReac Type Severity Reaction Status Date / Time No Known Allergies Allergy Verified 10/30/18 12:58 Home Medications Medication Instructions Recorded Confirmed Type silodosin [Rapaflo] 8 mg PO HS 10/30/18 10/31/18 History Exam Vital signs: Vital Signs 10/31/18 16:00 10/31/18 18:00 10/31/18 20:00 Temperature 97.6 F 98.6 F Pulse Rate 92 H 92 H 97 H Respiratory Rate 16 18 Blood Pressure 122/76 118/74 Pulse Oximetry 96 98 11/01/18 00:00 11/01/18 04:00 11/01/18 08:00 Temperature 98.8 F 98.1 F 96.7 F L Pulse Rate 97 H 90 84 Respiratory Rate 18 18 16 Blood Pressure 109/75 117/71 112/64 Pulse Oximetry 98 96 96 11/01/18 12:00 Temperature 97.4 F L Pulse Rate 86 Respiratory Rate 20 Blood Pressure 108/67 Pulse Oximetry 96 Intake & Output 10/31/18 11/01/18 11/01/18 18:59 06:59 18:59 Intake Total 3730 / 3730 1960 / 1960 1000 / 1000 Output Total 1500 / 1500 Balance 3730 / 3730 460 / 460 1000 / 1000 Weight 109.2 kg Intake: IV 2100 / 2100 1000 / 1000 1000 / 1000 NS Inj 1,000 ML @ 100 mls/hr IV 2000 / 2000 1000 / 1000 1000 / 1000 .CONT .Q10H [facility] Rx#:[id number] Rocephin Inj 1,000 MG In NS Inj 100 / 100 100 ML @ 200 mls/hr IV.SIG Q24H ABEL Rx#:[id number] Oral 1630 / 1630 Oral Supplement 960 / 960 Output: Urine 1500 / 1500 Other: # Voids 5 # Bowel Movements 0 - Constitutional no acute distress, average body habitus, cooperative - Routine HEENT Exam Head: Present: normocephalic, atraumatic. Absent: cushingoid faces Eye: Present: EOMI, PERRL. Absent: conjunctival icterus, nystagmus ENT: Present: mucous membranes moist, nares patent. Absent: sinus tenderness - Routine Neck Exam Present: supple, full ROM. Absent: carotid bruit - Routine Chest/Breast/Axilla Exam Chest wall: Absent: tenderness, mass - Routine Respiratory Exam Present: CTA bilaterally. Absent: accessory muscle use, wheezes, crackles - Routine Cardiovascular Exam Present: RRR, S1, S2. Absent: murmur - Routine Abdominal Exam Present: soft, normoactive bowel sounds. Absent: tenderness, distended, rebound , organomegaly - Routine Extremities Exam Absent: cyanosis, clubbing - Routine Skin Exam Present: intact. Absent: cyanosis, erythema, dry, jaundice - Routine Neurological Exam Present: alert, oriented X3, CN II-XII intact. Absent: sensory deficit, motor deficit Results - Labs CBC & Chem 7: 11/01/18 06:02 11/01/18 06:02 Labs: Laboratory Results - last 24 hr 10/31/18 11/01/18 11/01/18 07:18 06:02 06:02 CBC w Diff Slide review pending WBC 13.7 H RBC 4.26 L Hgb 12.1 L Hct 36.0 L MCV 84.5 MCH 28.4 MCHC 33.6 RDW 12.6 Plt Count 99 L MPV 8.9 Neut % (Auto) 88.7 H Lymph % (Auto) 7.1 L [place] % (Auto) 3.3 Eos % (Auto) 0.6 Baso % (Auto) 0.3 Neut # (Auto) 12.1 H Lymph # (Auto) 1.0 [place] # (Auto) 0.5 Eos # (Auto) 0.1 Baso # (Auto) 0.0 WBC Differential . Diff Scan Auto diff confirmed Differential Comment . Platelet Morphology Normal RBC Morphology Normal Sodium 141 Potassium 3.4 L Chloride 108 H Carbon Dioxide 23.8 Anion Gap 9 BUN 26 H Creatinine 1.00 Estimated GFR 77 L Random Glucose 97 Calcium 7.6 L Total Bilirubin 1.9 H 1.2 H Direct Bilirubin 0.9 H Indirect Bilirubin 1.0 H AST 58 H 36 ALT 75 55 Alkaline Phosphatase 73 99 Total Protein 6.2 L 6.2 L Albumin 2.8 L 2.7 L Assessment and Plan (1) Gram negative septicemia Status: Acute Code(s): A41.50 - Gram-negative sepsis, unspecified (2) History of prostate biopsy Status: Acute Code(s): Z98.890 - Other specified postprocedural states (3) Sepsis Status: Acute Code(s): A41.9 - Sepsis, unspecified organism - Plan Patient responding to the Ceftriaxone so will continue the same Increase Ceftriaxone dose to 2 g IV daily Stop the Cipro - R to quinolones Follow repeat blood culture to make sure he is clearing bacteremia Follow repeat CBC and UAC. Dr Mauro will be covering service from 11/02/18 (3) Sepsis Qualifiers: Sepsis type: sepsis due to unspecified organism Qualified Code(s): A41.9 - Sepsis, unspecified organism
[2018-11-02] MEDS: Sod Chloride 0.9% Inj 1,000 ML IV.CONT SCH ×2 (04:57→08:09)
[2018-11-02 07:49] LABS: Chloride 111 meq/L (98-107); Potassium 3.5 meq/L (3.5-5.1); Sodium 143 meq/L (136-145)
[2018-11-02 07:54] LABS: Baso # (Auto) 0.1 th/mm3 (0.0-0.2); Baso % (Auto) 0.9 % (0.0-2.0); Eos # (Auto) 0.2 th/mm3 (0.0-0.4); Eos % (Auto) 2.2 % (0.0-4.0); Hematocrit 35.8 % (39.0-51.0); Hemoglobin 12.1 gm/dL (13.0-17.0); Lymph # (Auto) 1.3 th/mm3 (1.0-4.8); Lymph % (Auto) 13.7 % (9.0-44.0); Mean Corpuscular HGB Conc 33.8 % (32.0-36.0); Mean Corpuscular Hemoglobin 28.3 pg (27.0-34.0); Mean Corpuscular Volume 83.6 fL (80.0-100.0); Mean Platelet Volume 8.4 fL (7.0-11.0); Mono # (Auto) 0.7 th/mm3 (0.0-0.9); Mono % (Auto) 6.8 % (0.0-8.0); Neut # (Auto) 7.4 th/mm3 (1.8-7.7); Neut % (Auto) 76.4 % (16.0-70.0); Red Blood Count 4.28 mil/mm3 (4.50-5.90); Red Cell Distribution Width 12.4 % (11.6-17.2); White Blood Count 9.7 th/mm3 (4.0-11.0)
[2018-11-02 07:55] LABS: Platelet Count 101 th/mm3 (150-450)
[2018-11-02 08:01] LABS: Anion Gap 6 meq/L (5-15); Blood Urea Nitrogen 18 mg/dL (7-18); Carbon Dioxide 26.5 meq/L (21.0-32.0); Glucose,Random 88 mg/dL (74-106)
[2018-11-02 08:03] LABS: Alanine Aminotransferase 47 U/L (12-78)
[2018-11-02 08:04] LABS: Albumin 2.5 g/dL (3.4-5.0); Calcium 7.9 mg/dL (8.5-10.1); Glomerular Filtration Rate 84 mL/min (>89)
[2018-11-02 08:05] LABS: Total Protein 5.9 g/dL (6.4-8.2)
[2018-11-02 08:06] LABS: Alkaline Phosphatase 109 U/L (45-117)
[2018-11-02 08:07] LABS: Aspartate Aminotransferase 25 U/L (15-37)
[2018-11-02] MEDS: Senna/Docusate Sodium 8.6/50 MG Tablet PO SCH ×2 (08:09→21:31)
[2018-11-02] MEDS: Heparin - SQ 10,000 UNITS/ML Vial SQ SCH ×2 (08:09→21:32)
[2018-11-02] MEDS: Acetaminophen 325 MG Tablet PO PRN ×2 (08:09→15:57)
--- NOTE | 2018-11-02 12:09 | ECHRPT ---
Indication: Sepsis Possible Endocarditis CONCLUSIONS Normal left ventricular size. Mild concentric left ventricular hypertrophy. The left ventricular systolic function is normal with an estimated ejection fraction in the range of 55-60%. There is trace tricuspid valve regurgitation. The estimated pulmonary arterial pressure is 46 mmHg. The pulmonary valve is not well visualized. BP: / HR: Rhythm: MEASUREMENTS (Male / Female) Normal Values Technical Quality:Fair 2D ECHO LV Diastolic Diameter PLAX 3.9 cm 4.2 - 5.9 / 3.9 - 5.3 cm LV Systolic Diameter PLAX 2.6 cm IVS Diastolic Thickness 1.1 cm 0.6 - 1.0 / 0.6 - 0.9 cm LVPW Diastolic Thickness 1.1 cm 0.6 - 1.0 / 0.6 - 0.9 cm LV Relative Wall Thickness 0.6 RV Internal Dim ED PLAX 3.7 cm LVOT Diameter 2.3 cm Aortic Root Diameter 3.7 cm LA Systolic Diameter LX 2.8 cm 3.0 - 4.0 / 2.7 - 3.8 cm M-MODE AV Cusp Separation MM 2.5 cm DOPPLER AV Peak Velocity 113.0 cm/s AV Peak Gradient 5.1 mmHg LVOT Peak Velocity 79.0 cm/s LVOT Peak Gradient 2.5 mmHg AV Area Cont Eq pk 2.9 cm Mitral E Point Velocity 94.8 cm/s Mitral A Point Velocity 53.8 cm/s Mitral E to A Ratio 1.8 LV E' Lateral Velocity 12.4 cm/s Mitral E to LV E' Lateral Ratio 7.6 LV E' Septal Velocity 10.4 cm/s Mitral E to LV E' Septal Ratio 9.1 TR Peak Velocity 301.0 cm/s TR Peak Gradient 36.2 mmHg Right Atrial Pressure 10.0 mmHg Pulmonary Artery Systolic Pressu 46.2 mmHg Right Ventricular Systolic Press 46.2 mmHg PV Peak Velocity 110.0 cm/s PV Peak Gradient 4.8 mmHg FINDINGS LEFT VENTRICLE Normal left ventricular size. Mild concentric left ventricular hypertrophy. The left ventricular systolic function is normal with an estimated ejection fraction in the range of 55-60%. RIGHT VENTRICLE Normal right ventricular size and systolic function. LEFT ATRIUM The left atrial size is normal. RIGHT ATRIUM The right atrial size is normal. ATRIAL SEPTUM Normal atrial septal thickness without atrial level shunting by limited color doppler interrogation. AORTA The aortic root and proximal ascending aorta are normal in size on limited imaging. MITRAL VALVE Structurally normal mitral valve. No mitral valve stenosis or regurgitation. AORTIC VALVE No aortic valve stenosis or regurgitation. TRICUSPID VALVE There is trace tricuspid valve regurgitation. The estimated pulmonary arterial pressure is 46 mmHg. PULMONARY VALVE The pulmonary valve is not well visualized. VESSELS The inferior vena cava is normal in size. PERICARDIUM No pericardial effusion. Ervin العلي MD, FACC (Electronically Signed) Final Date:02 November 2018 12:07
[2018-11-02 15:03] LABS: Bilirubin,Urine Negative (Negative); Clarity,Urine Clear (Clear); Color,Urine Yellow (Yellw/Straw); Glucose,Urine (UA) Negative (Negative); Leukocyte Esterase,Urine Trace (Negative); Nitrite,Urine Negative (Negative); Specific Gravity,Urine Less/Equal 1.005 (1.002-1.035); Urobilinogen,Urine 0.2 mg/dL (Less than 2)
[2018-11-02 15:42] LABS: Squamous Epithelial Cell,Urine 0-5 /hpf (0-5); WBC,Urine 0-5 /hpf (0-5)
--- NOTE | 2018-11-02 15:52 | P.PNIM ---
Subjective Interval history: 58-year-old male who is seen examined today for follow-up on urosepsis. Patient is doing much better today. Does have some fatigue but he relates it to lying around the hospital for the last 3-4 days. He does have a mild headache which is controlled with Tylenol. Otherwise denies any fever, chills, abdominal pain. Reviewed repeat urinalysis with patient which was unremarkable does not require any culture. Reviewed all laboratory studies with the patient indicating his white count has went to normal at this time. Vital signs remained stable. Notify them that we are awaiting infectious disease for antibiotic recommendations for discharge Physical Exam Vital signs: Vital Signs 11/01/18 16:00 11/01/18 20:00 11/01/18 20:30 Temperature 97.3 F L 97.9 F Pulse Rate 79 80 85 Respiratory Rate 20 18 18 Blood Pressure 108/66 118/69 Pulse Oximetry 96 97 11/02/18 00:00 11/02/18 04:00 11/02/18 08:00 Temperature 99.5 F 98.7 F 96.8 F L Pulse Rate 77 74 77 Respiratory Rate 18 18 15 Blood Pressure 118/67 128/77 107/62 Pulse Oximetry 99 96 96 11/02/18 12:00 Temperature 97.0 F L Pulse Rate 72 Respiratory Rate 15 Blood Pressure 110/64 Pulse Oximetry 96 Intake & Output 11/01/18 11/02/18 11/02/18 18:59 06:59 18:59 Intake Total 2099 2175 / 2175 1000 / 1000 Output Total 450 / 450 Balance 2099 1725 / 1725 1000 / 1000 Weight 109.8 kg Intake: IV 1000 / 1000 1974 1000 / 1000 NS Inj 1,000 ML @ 100 mls/hr IV 1000 / 1000 1875 / 1875 1000 / 1000 .CONT .Q10H [facility] Rx#:[id number] Rocephin Inj 2,000 MG In NS Inj 100 / 100 100 ML @ 200 mls/hr IV.SIG Q24H [facility] Rx#:[id number] Oral 1100 / 1100 200 / 200 Output: Urine 450 / 450 Other: # Voids 6 # Bowel Movements 0 Narrative: GENERAL: Well-developed, well-nourished, in no acute distress. alert and orientated HEENT: Head is normocephalic without any lesions or masses noted. Facial features are symmetric. Eyes: Extraocular muscles are intact. Conjunctivae were clear. NECK: Supple without any masses. Trachea midline no deviation. No JVD, CARDIAC: Regular rhythm, regular rate. S1/S2 are heard. No murmurs gallops or rubs. LUNGS: Clear to auscultation bilaterally. No wheeze, rhonchi or rales. No use of accessory muscles on inspiration or expiration. ABDOMEN: Soft, nontender. Nondistended. Bowel sounds heard in all 4 quadrants. No organomegaly or masses. Negative rebound, negative guarding EXTREMITIES: No edema, pulses are equal bilaterally. No cyanosis or clubbing NEUROLOGY: Mood and affect appear appropriate. Cranial nerves II through XII grossly intact. Moving all extremities, speech is clear Results Labs CBC & Chem 7: 11/02/18 07:20 11/02/18 07:20 Labs: Microbiology 10/30/18 16:55 Blood - Peripheral Aerobic Blood Culture - Preliminary No growth in 3 days 10/30/18 16:55 Blood - Peripheral Anaerobic Blood Culture - Final Escherichia coli 10/30/18 16:50 Blood - Peripheral Aerobic Blood Culture - Preliminary No growth in 3 days 10/30/18 16:50 Blood - Peripheral Anaerobic Blood Culture - Final Escherichia coli 10/31/18 16:25 Blood - Peripheral Aerobic Blood Culture - Preliminary No growth in 2 days 10/31/18 16:25 Blood - Peripheral Anaerobic Blood Culture - Preliminary No growth in 2 days 10/31/18 16:33 Blood - Peripheral Aerobic Blood Culture - Preliminary No growth in 2 days 10/31/18 16:33 Blood - Peripheral Anaerobic Blood Culture - Preliminary No growth in 2 days 10/30/18 17:13 Clean Catch Urine Urine Culture - Final Escherichia coli Assessment and Plan (1) Gram negative septicemia: Code(s): A41.50 - Gram-negative sepsis, unspecified Status: Acute (2) History of prostate biopsy: Code(s): Z98.890 - Other specified postprocedural states Status: Acute (3) Sepsis: Code(s): A41.9 - Sepsis, unspecified organism Status: Acute Plan Severe urosepsis with Bacteremia Patient met criteria on admission with leukocytosis, tachycardia, urinary tract infection, lactic acidosis Blood cultures were initially positive with E. coli, follow-up cultures have been negative for 2 days Urine culture growing E. coli Infectious disease was consulted for further recommendations. Awaiting antibiotic recommendations Patient currently on Rocephin Leukocytosis has resolved, patient has remained afebrile Acute kidney injury, resolved Could be secondary to enlarged prostate, infection, recent prostate biopsy Patient started on Flomax Patient with rather good urinary output at this time Renal functions have returned to normal Continue monitor renal function Transaminitis. Resolved Likely secondary to sepsis Follow-up liver enzymes have returned to normal DVT prevention Sequential compression devices Subcutaneous heparin Discharge Planning: Anticipate discharge once cleared and antibiotic recommendations by infectious disease Progress Note: Quality VTE Deep Vein Thrombosis/Pulmonary Embolism Present on Admission: No _ (1) Sepsis Qualifiers: Sepsis type: sepsis due to unspecified organism Qualified Code(s): A41.9 - Sepsis, unspecified organism
--- NOTE | 2018-11-02 16:07 | P.PNID ---
Subjective Remarks: doing OK co weakness, fatigue no fever NOn ESBL E.coli Antibiotics: CFTX Allergies/Adverse Reactions: Allergies No Known Allergies Allergy (Verified 10/30/18 12:58) Objective Vital Signs 11/01/18 20:00 11/01/18 20:30 11/02/18 00:00 Temperature 97.9 F 99.5 F Pulse Rate 80 85 77 Respiratory Rate 18 18 18 Blood Pressure 118/69 118/67 Pulse Oximetry 97 99 11/02/18 04:00 11/02/18 08:00 11/02/18 12:00 Temperature 98.7 F 96.8 F L 97.0 F L Pulse Rate 74 77 72 Respiratory Rate 18 15 15 Blood Pressure 128/77 107/62 110/64 Pulse Oximetry 96 96 96 Intake & Output 11/01/18 11/02/18 11/02/18 18:59 06:59 18:59 Intake Total 2100 / 2100 2175 / 2175 1000 / 1000 Output Total 450 / 450 Balance 2100 / 2100 1725 / 1725 1000 / 1000 Weight 109.8 kg Intake: IV 1000 / 1000 1974 1000 / 1000 NS Inj 1,000 ML @ 100 mls/hr IV 1000 / 1000 1875 / 1875 1000 / 1000 .CONT .Q10H ABEL Rx#:[id number] Rocephin Inj 2,000 MG In NS Inj 100 / 100 100 ML @ 200 mls/hr IV.SIG Q24H ABEL Rx#:[id number] Oral 1100 / 1100 200 / 200 Output: Urine 450 / 450 Other: # Voids 6 # Bowel Movements 0 10/30/18 16:55 Blood - Peripheral Aerobic Blood Culture - Preliminary No growth in 3 days 10/30/18 16:55 Blood - Peripheral Anaerobic Blood Culture - Final Escherichia coli 10/30/18 16:50 Blood - Peripheral Aerobic Blood Culture - Preliminary No growth in 3 days 10/30/18 16:50 Blood - Peripheral Anaerobic Blood Culture - Final Escherichia coli 10/31/18 16:25 Blood - Peripheral Aerobic Blood Culture - Preliminary No growth in 2 days 10/31/18 16:25 Blood - Peripheral Anaerobic Blood Culture - Preliminary No growth in 2 days 10/31/18 16:33 Blood - Peripheral Aerobic Blood Culture - Preliminary No growth in 2 days 10/31/18 16:33 Blood - Peripheral Anaerobic Blood Culture - Preliminary No growth in 2 days 10/30/18 17:13 Clean Catch Urine Urine Culture - Final Escherichia coli Lab - Hematology Results 11/01/18 11/02/18 06:02 07:20 CBC w Diff Slide review pending Slide review pending WBC 13.7 H 9.7 RBC 4.26 L 4.28 L Hgb 12.1 L 12.1 L Hct 36.0 L 35.8 L MCV 84.5 83.6 MCH 28.4 28.3 MCHC 33.6 33.8 RDW 12.6 12.4 Plt Count 99 L 101 L MPV 8.9 8.4 Neut % (Auto) 88.7 H 76.4 H Lymph % (Auto) 7.1 L 13.7 [place] % (Auto) 3.3 6.8 Eos % (Auto) 0.6 2.2 Baso % (Auto) 0.3 0.9 Neut # (Auto) 12.1 H 7.4 Lymph # (Auto) 1.0 1.3 [place] # (Auto) 0.5 0.7 Eos # (Auto) 0.1 0.2 Baso # (Auto) 0.0 0.1 WBC Differential . . Diff Scan Auto diff confirmed Auto diff confirmed Differential Comment . . Platelet Morphology Normal RBC Morphology Normal Lab - Chemistry Results 10/31/18 11/01/18 11/02/18 07:18 06:02 07:20 Sodium 141 143 Potassium 3.4 L 3.5 Chloride 108 H 111 H Carbon Dioxide 23.8 26.5 Anion Gap 9 6 BUN 26 H 18 Creatinine 1.00 0.93 Estimated GFR 77 L 84 L Random Glucose 97 88 Calcium 7.6 L 7.9 L Total Bilirubin 1.9 H 1.2 H 0.9 Direct Bilirubin 0.9 H Indirect Bilirubin 1.0 H AST 58 H 36 25 ALT 75 55 47 Alkaline Phosphatase 73 99 109 Total Protein 6.2 L 6.2 L 5.9 L Albumin 2.8 L 2.7 L 2.5 L Imaging: ITS Impressions Chest X-Ray 10/30/18 16:27 CONCLUSION: No acute cardiopulmonary process Abdomen/Pelvis CT 10/30/18 16:32 CONCLUSION: 1. Mild induration of the soft tissues about the prostate without fluid collection or free air. 2. Prostate enlargement does indent into the base the urinary bladder. 3. Small right parasagittal supraumbilical ventral hernia with partial protrusion of the bowel into the defect. No dilated loops of small or large bowel. Physical Exam: GENERAL: NAD SKIN: Warm and dry. NO rash EYES: Pupils equal and round. No scleral icterus. No injection or drainage. ENT: No nasal bleeding or discharge. Mucous membranes pink and moist. CARDIOVASCULAR: Regular rate and rhythm. no murmurs RESPIRATORY: No accessory muscle use. Clear to auscultation. Breath sounds equal bilaterally. GASTROINTESTINAL: Abdomen soft, non-tender, nondistended. Hepatic and splenic margins not palpable. MUSCULOSKELETAL: Extremities without clubbing, cyanosis, or edema. No obvious deformities. NEUROLOGICAL: Awake and alert. No obvious cranial nerve deficits. Motor grossly within normal limits. Five out of 5 muscle strength in the arms and legs. Normal speech. PSYCHIATRIC: Appropriate mood and affect; insight and judgment normal. Assessment and Plan (1) Gram negative septicemia Status: Acute Code(s): A41.50 - Gram-negative sepsis, unspecified (2) History of prostate biopsy Status: Acute Code(s): Z98.890 - Other specified postprocedural states (3) Sepsis Status: Acute Code(s): A41.9 - Sepsis, unspecified organism - Plan Patient responding to the Ceftriaxone so will continue the same Increase Ceftriaxone dose to 2 g IV daily Follow repeat blood culture to make sure he is clearing bacteremia Follow repeat CBC and UAC. If remains afebrile, negative cultures andf clinicallly improves will switch to PO bactrim x 2 weeks (include CFTX time) dw HEPAS (3) Sepsis Qualifiers: Sepsis type: sepsis due to unspecified organism Qualified Code(s): A41.9 - Sepsis, unspecified organism
[2018-11-03 08:51] VITALS: RESP 16; O2SAT 97
--- NOTE | 2018-11-03 09:02 | P.PNIM ---
Subjective Interval history: 58-year-old male who is seen examined today for follow-up on urosepsis. Patient completely stable. Denies any new complaints. Patient very eager to go home. Patient remains afebrile. Vital signs are stable. Physical Exam Vital signs: Vital Signs 11/02/18 12:00 11/02/18 16:00 11/02/18 20:00 Temperature 97.0 F L 97.6 F 97.9 F Pulse Rate 72 76 75 Respiratory Rate 15 16 20 Blood Pressure 110/64 112/68 124/63 Pulse Oximetry 96 96 97 11/02/18 20:30 11/03/18 00:00 11/03/18 08:00 Temperature 98.3 F 98.1 F Pulse Rate 70 74 Respiratory Rate 20 20 16 Blood Pressure 141/85 H 121/78 Pulse Oximetry 100 97 Intake & Output 11/02/18 11/03/18 11/03/18 18:59 06:59 18:59 Intake Total 2080 / 2080 100 / 100 Output Total 700 / 700 Balance 1380 / 1380 100 / 100 Weight 111.2 kg Intake: IV 1000 / 1000 100 / 100 NS Inj 1,000 ML @ 100 mls/hr IV 1000 / 1000 .CONT .Q10H ABEL Rx#:[id number] Rocephin Inj 2,000 MG In NS Inj 100 / 100 100 ML @ 200 mls/hr IV.SIG Q24H ABEL Rx#:[id number] Oral 1080 / 1080 Output: Urine 700 / 700 Other: # Voids 5 4 # Bowel Movements 0 Narrative: GENERAL: Well-developed, well-nourished, in no acute distress. alert and orientated HEENT: Head is normocephalic without any lesions or masses noted. Facial features are symmetric. Eyes: Extraocular muscles are intact. Conjunctivae were clear. NECK: Supple without any masses. Trachea midline no deviation. No JVD, CARDIAC: Regular rhythm, regular rate. S1/S2 are heard. No murmurs gallops or rubs. LUNGS: Clear to auscultation bilaterally. No wheeze, rhonchi or rales. No use of accessory muscles on inspiration or expiration. ABDOMEN: Soft, nontender. Nondistended. Bowel sounds heard in all 4 quadrants. No organomegaly or masses. Negative rebound, negative guarding EXTREMITIES: No edema, pulses are equal bilaterally. No cyanosis or clubbing NEUROLOGY: Mood and affect appear appropriate. Cranial nerves II through XII grossly intact. Moving all extremities, speech is clear Results Labs CBC & Chem 7: 11/02/18 07:20 11/02/18 07:20 Labs: Microbiology 10/30/18 16:55 Blood - Peripheral Aerobic Blood Culture - Preliminary No growth in 3 days 10/30/18 16:55 Blood - Peripheral Anaerobic Blood Culture - Final Escherichia coli 10/30/18 16:50 Blood - Peripheral Aerobic Blood Culture - Preliminary No growth in 3 days 10/30/18 16:50 Blood - Peripheral Anaerobic Blood Culture - Final Escherichia coli 10/31/18 16:25 Blood - Peripheral Aerobic Blood Culture - Preliminary No growth in 2 days 10/31/18 16:25 Blood - Peripheral Anaerobic Blood Culture - Preliminary No growth in 2 days 10/31/18 16:33 Blood - Peripheral Aerobic Blood Culture - Preliminary No growth in 2 days 10/31/18 16:33 Blood - Peripheral Anaerobic Blood Culture - Preliminary No growth in 2 days 10/30/18 17:13 Clean Catch Urine Urine Culture - Final Escherichia coli Assessment and Plan (1) Gram negative septicemia: Code(s): A41.50 - Gram-negative sepsis, unspecified Status: Acute (2) History of prostate biopsy: Code(s): Z98.890 - Other specified postprocedural states Status: Acute (3) Sepsis: Code(s): A41.9 - Sepsis, unspecified organism Status: Acute Plan Severe urosepsis with Bacteremia Patient met criteria on admission with leukocytosis, tachycardia, urinary tract infection, lactic acidosis Blood cultures were initially positive with E. coli, follow-up cultures have been negative for 2 days Urine culture growing E. coli Infectious disease was consulted for further recommendations. Awaiting antibiotic recommendations Patient currently on Rocephin Leukocytosis has resolved, patient has remained afebrile Acute kidney injury, resolved Could be secondary to enlarged prostate, infection, recent prostate biopsy Patient started on Flomax Patient with rather good urinary output at this time Renal functions have returned to normal Continue monitor renal function Transaminitis. Resolved Likely secondary to sepsis Follow-up liver enzymes have returned to normal DVT prevention Sequential compression devices Subcutaneous heparin Discharge Planning: Awaiting antibiotic recommendations by infectious disease for discharge Progress Note: Quality VTE Deep Vein Thrombosis/Pulmonary Embolism Present on Admission: No _ (1) Sepsis Qualifiers: Sepsis type: sepsis due to unspecified organism Qualified Code(s): A41.9 - Sepsis, unspecified organism
[2018-11-03] MEDS: Senna/Docusate Sodium 8.6/50 MG Tablet PO SCH (09:07)
[2018-11-03] MEDS: Heparin - SQ 10,000 UNITS/ML Vial SQ SCH ×2 (09:07→09:12)
[2018-11-03 12:35] VITALS: BP 137/85; PULSE 78; TEMP 99
--- NOTE | 2018-11-03 13:23 | P.DS ---
DS: Providers Date of admission: 10/30/18 18:46 Primary care physician: Betty Elmore MD Consults: 10/31/18 12:23 Consult to Infectious Diseases Routine Consulting Provider: Rowan Germain Reason for Consultation: bacteremia Notified:: Service Spoke with:: SHASHI Date Notified:: 10/31/18 Time Notified:: 12:37 Ordering Provider: DORA Anticipated date of discharge: 11/03/18 Brief History from admission: This is a 58-year-old male patient with a known medical history of enlarged prostate who presented to the ED with complaints of nausea, vomiting, diarrhea and generalized malaise times 1 day. Patient is being followed by a urologist up [facility] and is in the middle of a study with [facility] and on of this week he underwent a prostate biopsy. On he actually traveled home after the biopsy to [place] and was doing quite well. On Thursday he developed severe chills and fever with associated nausea, vomiting and diarrhea. He had felt that this was maybe the flu or something he caught while traveling. Patient states that the symptoms continued to worsen over the course of the evening which prompted his presentation to the ED on Thursday morning. Patient denies any previous UTI in the past. He does state he took three doses of Levaquin the day before, of and day after his procedure. Presented with severe sepsis with bacteremia, leukocytosis with WBC 30k, elevated lactic acid and UA and + blood cultures with gram neg rods. DS: Diagnosis Discharge Diagnosis (1) Gram negative septicemia: Status: Acute (2) History of prostate biopsy: Status: Acute (3) Sepsis: Status: Acute DS: Summary Severe urosepsis with Bacteremia Patient met criteria on admission with leukocytosis, tachycardia, urinary tract infection, lactic acidosis Blood cultures were initially positive with E. coli, follow-up cultures have been negative for 2 days Urine culture growing E. coli Infectious disease was consulted for further recommendations. Infectious disease indicated the patient remains stable, blood culture remain negative patient can go home on total of 2 weeks of Bactrim Patient currently on Rocephin Leukocytosis has resolved, patient has remained afebrile Acute kidney injury, resolved Could be secondary to enlarged prostate, infection, recent prostate biopsy Patient started on Flomax Patient with rather good urinary output at this time Renal functions have returned to normal Continue monitor renal function Transaminitis. Resolved Likely secondary to sepsis Follow-up liver enzymes have returned to normal Time Spent with Patient Total time spent providing and/or coordinating discharge services: Greater than 30 minutes Quality: VTE Deep Vein Thrombosis/Pulmonary Embolism Present on Admission: No Results Labs on day of discharge: Labs from last 24 hours 11/02/18 14:45 Ur Collection Type Clean catch Urine Color Yellow Urine Clarity Clear Urine pH 6.0 Ur Specific [place] Less/equal 1.005 Urine Protein Negative Urine Glucose (UA) Negative Urine Ketones Negative Urine Occult Blood Moderate H Urine Nitrate Negative Urine Bilirubin Negative Urine Urobilinogen 0.2 Ur Leukocyte Esterase Trace H Urine RBC 4-15 H Urine WBC 0-5 Ur Squamous Epith Cells 0-5 Micro UA Comment Culture not ind Ur Microscopic Review Microscopic reviewed Urine Culture Comments Culture not ind Preliminary micro results at discharge 10/31/18 16:25 Aerobic Blood Culture - Preliminary Blood - Peripheral No growth in 3 days Anaerobic Blood Culture - Preliminary No growth in 3 days 10/31/18 16:33 Aerobic Blood Culture - Preliminary Blood - Peripheral No growth in 3 days Anaerobic Blood Culture - Preliminary No growth in 3 days 10/30/18 16:50 Aerobic Blood Culture - Preliminary Blood - Peripheral No growth in 4 days 10/30/18 16:55 Aerobic Blood Culture - Preliminary Blood - Peripheral No growth in 4 days Impressions ITS Impressions Chest X-Ray 10/30/18 16:27 CONCLUSION: No acute cardiopulmonary process Abdomen/Pelvis CT 10/30/18 16:32 CONCLUSION: 1. Mild induration of the soft tissues about the prostate without fluid collection or free air. 2. Prostate enlargement does indent into the base the urinary bladder. 3. Small right parasagittal supraumbilical ventral hernia with partial protrusion of the bowel into the defect. No dilated loops of small or large bowel. Discharge Plan Discharge Disposition Patient Disposition: Discharge Home Discharge Condition Condition: Stable Discharge Order Discharge Orders: Discharge Order (Routine); Ordered 11/03/18 Ordered By: Gerard Mccullough Discharge Details Anticipated Discharge Date: 11/03/18 Physicians Team Primary Care Provider: Betty Elmore Attending Provider: Ciarra Bhatti Other Providers: Rowan Germain Rxs /Orders / Referrals /Forms Prescriptions: New sulfamethoxazole-trimethoprim [Bactrim DS] 800-160 mg tablet 1 tab PO Q12H Qty: 20 RF: 0 Continue silodosin [Rapaflo] 4 mg Capsule 8 mg PO HS RF: 0 Referrals: Betty Elmore MD [Primary Care Provider] - See Instructions Status ED Status: Left Department
== END 2018-11-03 13:44 | disposition home or self-care (01) | DRG 872 ==
LOC: PHED 12:53 → PHEDA 18:46 → PH3 19:45
PROVIDERS: ADMIT Hospitalist; ATTEND Hospitalist
DX: N17.9 Acute kidney failure, unspecified; R65.20 Severe sepsis without septic shock; R74.0 Nonspecific elevation of levels of transaminase and lactic acid dehydrogenase [LDH]; E87.2 Acidosis; N40.0 Benign prostatic hyperplasia without lower urinary tract symptoms; N39.0 Urinary tract infection, site not specified; R19.7 Diarrhea, unspecified; A41.51 Sepsis due to Escherichia coli [E. coli]; R17 Unspecified jaundice
CPT/HCPCS: 71010; 71045; 74176; 80048; 80053; 80076; 81001; 83605; 83735; 85025; 87040; 87077; 87086; 87186; 87205; 90774; 93005; 93306; 96374; 99285; C8952; J0696; J0744; J1644; J2405; J7030; Q0169